=== PATIENT | female | born 1980 | race Caucasian/White ===

== ENCOUNTER 2025-05-01 13:37 | Outpatient (CLI) | payer BC, SELFPAY ==
[2025-05-03 19:30] LABS: HPV Source Cervical
== END 2025-05-01 13:38 | disposition home or self-care (01) ==
PROVIDERS: PCP Family Medicine; Visit Provider Family Medicine
DX: Z12.4 Encounter for screening for malignant neoplasm of cervix (principal); Z11.51 Encounter for screening for human papillomavirus (HPV)
CPT/HCPCS: 87624; 87625; 88141; 88142

== ENCOUNTER 2025-08-25 12:49 | Outpatient (CLI) | payer BC, SELFPAY ==
--- NOTE | 2025-08-25 13:00 | CRLHL7_ITS ---
For Patients: As a result of the Century Cures Act, medical imaging exams and procedure reports are released immediately into your electronic medical record. You may view this report before your referring provider. If you have questions, please contact your health care provider. INDICATION: BILATERAL SCREENING MAMMOGRAM W/IMPLANTS, ASYMPTOMATIC 44 Y/O FEMALE COMPARISON: BASELINE TECHNIQUE: Digital mammogram in CC and MLO projections including computer-aided detection (CAD) and tomosynthesis. BREAST COMPOSITION: The breasts are heterogeneously dense, which may obscure small masses. FINDINGS: No suspicious findings. ASSESSMENT: BI-RADS 2 Benign RECOMMENDATION: Annual screening mammogram. A lay language report of this examination will be provided to the patient. Dictated by: Derrick Dunham MD @ 08/28/2025 09:27:25 (Electronically Signed)
== END 2025-08-25 12:50 | disposition home or self-care (01) ==
LOC: MAMMO 12:50
PROVIDERS: PCP Family Medicine; Visit Provider Family Medicine
DX: Z12.31 Encounter for screening mammogram for malignant neoplasm of breast (principal); R92.333 Mammographic heterogeneous density, bilateral breasts; Z98.82 Breast implant status
CPT/HCPCS: 77063; 77067